=== PATIENT | male | born 1940 | race Caucasian/White ===

== ENCOUNTER → 2024-01-22 | Day surgery (SDC) | payer MEDICARE ==
[2024-01-14 12:58] LABS: BASOPHILS % 0.4 % (0.0-1.0); EOSINOPHILS # (AUTO) 0.3 (0.0-0.4); EOSINOPHILS % 4.2 % (0.0-6.0); HEMATOCRIT 46.6 % (38.2-49.6); HEMOGLOBIN 15.4 g/dL (14.0-18.0); LYMPHOCYTES # (AUTO) 1.2 (1.0-3.2); LYMPHOCYTES % 17.2 % (18.0-39.1); MEAN CORPUSCULAR HEMOGLOBIN 29.6 pg (28-32); MEAN CORPUSCULAR VOLUME 89.4 fL (81-99); MONOCYTES # (AUTO) 0.6 (0.2-0.8); MONOCYTES % 7.9 % (4.4-11.3); NEUTROPHILS # (AUTO) 4.9 (2.1-6.9); PLATELET COUNT 148 x10e3/uL (140-360); RED BLOOD COUNT 5.21 x10e6/uL (4.3-5.7); RED CELL DISTRIBUTION WIDTH 13.4 % (11.7-14.4); WHITE BLOOD COUNT 6.97 x10e3/uL (4.8-10.8)
[2024-01-14 13:14] LABS: ANION GAP 14.4 mmol/L (8-16); CALCIUM 9.4 mg/dL (8.4-10.2); CREATININE, SERUM 1.03 mg/dL (0.72-1.25); POTASSIUM 4.4 mmol/L (3.5-5.1)
[~2024-01-22] MED LIST: AMLODIPINE BESYL5 MG PO; ASPIRIN81 MG PO; B12 ACTIVE1000 MCG PO; FUROSEMIDE40 MG PO; IBUPROFEN200 MG PO; INHALER IH; LEXAPRO5 MG PO; LIDOCAINE HCL 2% LOCAL INJ 5 ML SDV VIAL INJ ONE; METFORMIN HCL500 MG PO; METOPROLOL SUCC50 MG PO; MULTI-VITAMIN1 EACH PO; OMEPRAZOLE40 MG PO; POTASSIUM CHLO10 ME1 PO; PROPOFOL IV EMULSION 10 MG/ML 20 ML VIAL ONE; SPIRONOLACTONE25 MG PO
[2024-01-22] MEDS: LACTATED RINGER'S 1,000 ML ONE (10:05)
[2024-01-22 12:00] VITALS: TEMP 97.4
[2024-01-22 12:20] VITALS: BP 146/88; PULSE 64; RESP 18; O2SAT 96
== END | disposition home or self-care (01) ==
LOC: OR 09:19
PROVIDERS: ATTEND Internal Medicine Gastroenterology
DX: Z12.11 Encounter for screening for malignant neoplasm of colon (principal); K62.4 Stenosis of anus and rectum; Z80.0 Family history of malignant neoplasm of digestive organs; G47.33 Obstructive sleep apnea (adult) (pediatric); E11.9 Type 2 diabetes mellitus without complications; I10 Essential (primary) hypertension; E66.01 Morbid (severe) obesity due to excess calories; M19.90 Unspecified osteoarthritis, unspecified site; G89.29 Other chronic pain; N20.0 Calculus of kidney; Z01.810 Encounter for preprocedural cardiovascular examination; Z01.812 Encounter for preprocedural laboratory examination; Z01.818 Encounter for other preprocedural examination; Z79.82 Long term (current) use of aspirin; Z79.84 Long term (current) use of oral hypoglycemic drugs; Z79.899 Other long term (current) drug therapy; Z86.73 Personal history of transient ischemic attack (TIA), and cerebral infarction without residual deficits; Z98.84 Bariatric surgery status
CPT/HCPCS: 36415; 45378; 71046; 80048; 85025; 93005; J2001; J2704; J7121

== ENCOUNTER 2024-01-30 08:17 | Observation (INO) | payer MEDICARE ==
[~2024-01-30] VITALS: Ht 177.8 cm; Wt 127.5 kg
[2024-01-30] VITALS (7 sets, daily range): BP systolic 130–167; BP diastolic 81–88; PULSE 51–85; RESP 16–20; TEMP 97–98.6; O2SAT 95–100
[~2024-01-30 08:17] MED LIST changes: -LIDOCAINE HCL 2% LOCAL INJ 5 ML SDV VIAL INJ ONE; -PROPOFOL IV EMULSION 10 MG/ML 20 ML VIAL ONE
[2024-01-30] MEDS: LACTATED RINGER'S 1,000 ML ONE (09:17)
[2024-01-30 09:27] LABS: ALBUMIN 4.1 g/dL (3.5-5.0); ALBUMIN/GLOBULIN RATIO 1.3 (0.8-2.0); ANION GAP 13.9 mmol/L (8-16); BILIRUBIN,TOTAL 1.2 mg/dL (0.2-1.2); CALCIUM 9.6 mg/dL (8.4-10.2); CREATININE, SERUM 1.12 mg/dL (0.72-1.25); POTASSIUM 4.9 mmol/L (3.5-5.1); TOTAL PROTEIN 7.3 g/dL (6.5-8.1)
[2024-01-30] MEDS ORDERED: LIDOCAINE JELLY 2% 10ML URO-JET ONE (10:26)
[2024-01-30] MEDS ORDERED: LIDOCAINE 1% W/EPINEPHRINE 20 ML VIAL ONE (10:26)
[2024-01-30] MEDS ORDERED: BUPIVACAINE 0.25% 30ML SDV ONE (10:26)
[2024-01-30] MEDS ORDERED: FENTANYL CITRATE/PF 100MCG/2 ML INJ ONE (12:08)
[2024-01-30] MEDS ORDERED: ONDANSETRON HCL INJ 2MG/ML 2ML 2 MG/ML VIAL IV PRN (12:30)
[2024-01-30] MEDS ORDERED: LIDOCAINE HCL 2% LOCAL INJ 5 ML SDV VIAL INJ ONE (12:52)
[2024-01-30] MEDS ORDERED: DEXMEDETOMIDINE HCL 200 MCG/2 ML VIAL ONE (12:52)
[2024-01-30] MEDS ORDERED: GLYCOPYRROLATE INJ 0.2 MG/ML VIAL ONE (12:52)
[2024-01-30] MEDS ORDERED: ACETAMINOPHEN 1000 MG/100 ML IV ONE (12:52)
[2024-01-30] MEDS ORDERED: ONDANSETRON HCL INJ 2MG/ML 2ML 2 MG/ML VIAL ONE (12:52)
[2024-01-30] MEDS ORDERED: SEVOFLURANE INHAL SOLN 250 ML PEN BTL ONE (12:52)
[2024-01-30] MEDS ORDERED: PROPOFOL IV EMULSION 10 MG/ML 20 ML VIAL ONE (12:52)
[2024-01-30] MEDS ORDERED: EPHEDRINE SULFATE INJ 50 MG/ML VIAL ONE (12:52)
[2024-01-30] MEDS ORDERED: DEXAMETHASONE SOD PHOS INJ 4 MG/ML SDV ONE (12:52)
[2024-01-30] MEDS ORDERED: NEOSTIGMINE 1 MG/ML 10ML VIAL ONE (12:52)
[2024-01-30] MEDS ORDERED: ROCURONIUM BROMIDE 10 MG/ML 5ML VIAL IV ONE (12:52)
[2024-01-30] MEDS: SODIUM CHLORIDE 0.9% 1000ML 1,000 ML IV SCH (17:05)
[2024-01-30] MEDS: HYDROMORPHONE 1MG/1ML INJ IV PRN (18:25)
[2024-01-30] MEDS: ACETAMINOPHEN/CODEINE 300MG - 30MG TAB PO PRN (22:23)
[2024-01-31 03:29] VITALS: BP 149/86; PULSE 54; RESP 18; TEMP 97.4; O2SAT 95
[2024-01-31 06:06] LABS: BASOPHILS % 0.2 % (0.0-1.0); EOSINOPHILS % 0.1 % (0.0-6.0); HEMATOCRIT 45.6 % (38.2-49.6); HEMOGLOBIN 14.9 g/dL (14.0-18.0); LYMPHOCYTES # (AUTO) 0.8 (1.0-3.2); LYMPHOCYTES % 6.7 % (18.0-39.1); MEAN CORPUSCULAR HEMOGLOBIN 29.3 pg (28-32); MEAN CORPUSCULAR HGB CONC 32.7 g/dL (31-35); MEAN CORPUSCULAR VOLUME 89.8 fL (81-99); MONOCYTES # (AUTO) 0.8 (0.2-0.8); MONOCYTES % 6.3 % (4.4-11.3); NEUTROPHILS # (AUTO) 10.9 (2.1-6.9); NEUTROPHILS % 86.2 % (38.7-80.0); PLATELET COUNT 162 x10e3/uL (140-360); RED BLOOD COUNT 5.08 x10e6/uL (4.3-5.7); RED CELL DISTRIBUTION WIDTH 13.1 % (11.7-14.4); WHITE BLOOD COUNT 12.61 x10e3/uL (4.8-10.8)
[2024-01-31 06:29] LABS: ANION GAP 12.5 mmol/L (8-16); CALCIUM 9.2 mg/dL (8.4-10.2); CREATININE, SERUM 0.92 mg/dL (0.72-1.25); POTASSIUM 4.5 mmol/L (3.5-5.1)
[2024-01-31 06:32] VITALS: PULSE 73; RESP 17; O2SAT 96
[2024-01-31 08:00] VITALS: BP 137/81; PULSE 69; RESP 21; TEMP 98.1; O2SAT 95
[2024-01-31 08:58] VITALS: BP 137/81; PULSE 69; RESP 21; TEMP 98.1; O2SAT 95
[2024-01-31] MEDS: SPIRONOLACTONE 25 MG TAB PO SCH (09:14)
[2024-01-31] MEDS: AMLODIPINE BESYLATE 5 MG TAB PO SCH (09:14)
[2024-01-31] MEDS: POTASSIUM CHLORIDE 10MEQ EA PO SCH (09:14)
[2024-01-31] MEDS: METOPROLOL SUCCINATE 50 MG TAB XL PO SCH (09:15)
[2024-01-31] MEDS: FUROSEMIDE 40 MG TAB PO SCH (09:18)
[2024-01-31 12:00] VITALS: BP 131/79; PULSE 57; RESP 19; TEMP 97.5; O2SAT 98
== END 2024-01-31 17:00 | disposition home or self-care (01) ==
LOC: OR 08:17 → PACU V 12:24 → MED/SURG2 15:02
PROVIDERS: ADMIT Surgery; ATTEND Surgery
DX: K62.4 Stenosis of anus and rectum (principal); K62.1 Rectal polyp; G47.33 Obstructive sleep apnea (adult) (pediatric); E11.9 Type 2 diabetes mellitus without complications; I11.0 Hypertensive heart disease with heart failure; I50.9 Heart failure, unspecified; J44.9 Chronic obstructive pulmonary disease, unspecified; K21.9 Gastro-esophageal reflux disease without esophagitis; Z98.84 Bariatric surgery status; F32.A Depression, unspecified; Z79.84 Long term (current) use of oral hypoglycemic drugs; Z79.82 Long term (current) use of aspirin; Z79.1 Long term (current) use of non-steroidal anti-inflammatories (NSAID); Z79.899 Other long term (current) drug therapy; Z86.73 Personal history of transient ischemic attack (TIA), and cerebral infarction without residual deficits
CPT/HCPCS: 14000; 36415 ×2; 46700; 80048; 80053; 82948 ×2; 85025; 88305; 94799 ×2; 99252; G0378 ×2; J0131; J0694 ×2; J1100; J1170; J2001; J2405; J2704; J2710; J3010; J7030 ×2; J7121